=== PATIENT | male | born 1995 | race Caucasian/White ===

== ENCOUNTER 2023-01-30 23:19 | Emergency (ER) | payer OTHER ==
[~2023-01-30] VITALS: Ht 185.4 cm; Wt 97.5 kg
[2023-01-31 00:52] VITALS: BP 130/83
[2023-01-31] MEDS ORDERED: DEXAMETHASONE SOD PHOSPHATE 10 MG/ML VIAL ONE (01:30)
[2023-01-31] MEDS ORDERED: DEXAMETHASONE SOD PHOSPHATE 10 MG/ML VIAL IM ONE (01:30)
[2023-01-31 01:50] LABS: BASOPHILS # (AUTO) 0.1 K/uL (0.0-0.2); BASOPHILS % (AUTO) 0.5 % (0.0-2.0); EOSINOPHILS % (AUTO) 1.7 % (0.0-6.0); HEMATOCRIT 46 % (39-51); HEMOGLOBIN 15.1 g/dL (13.5-17.5); LYMPHOCYTES # (AUTO) 4.6 K/uL (0.8-4.8); LYMPHOCYTES % (AUTO) 41.4 % (20.0-44.0); MEAN CORPUSCULAR HGB CONC 33 g/dl (31.0-36.0); MEAN CORPUSCULAR VOLUME 88 fL (80-96); MONOCYTES # (AUTO) 0.8 K/uL (0.1-1.30); MONOCYTES % (AUTO) 7.7 % (2.0-12.0); NEUTROPHILS # (AUTO) 5.4 K/uL (1.8-8.9); NEUTROPHILS % (AUTO) 48.7 % (43.0-81.0); PLATELET COUNT (AUTO) 441 K/uL (150-450); WHITE BLOOD COUNT (AUTO) 11.1 K/uL (4.3-11.0)
[2023-01-31 02:05] LABS: CALCIUM, SERUM 9.3 mg/dL (8.5-10.1); CARBON DIOXIDE 26 mmol/L (21-32); CHLORIDE 103 mmol/L (98-107); CREATININE 0.7 mg/dL (0.6-1.3); GLUCOSE 180 mg/dL (74-106); POTASSIUM 4.3 mmol/L (3.5-5.1); SODIUM SERUM 138 mmol/L (136-145); UREA NITROGEN, BLOOD 7 mg/dL (7-18)
[2023-01-31 02:20] LABS: C-REACTIVE PROTEIN < 0.2 mg/dL (0.0-0.9)
[2023-01-31] MEDS ORDERED: DOXE10CA2 PO (02:48)
--- NOTE | 2023-01-31 02:48 | NUR ---
Patient discharged to home in stable condition. Written and verbal after care instructions given. Patient verbalizes understanding of instruction.IV removed. Catheter intact and site benign. Pressure and 4x4 applied to site. No bleeding noted.
== END 2023-01-31 03:08 | disposition home or self-care (01) ==
LOC: ER 23:23
DX: L50.8 Other urticaria (principal); R21 Rash and other nonspecific skin eruption; E11.9 Type 2 diabetes mellitus without complications
CPT/HCPCS: 99283; 96372; 85025; 80048; 85652; 36415; 86140; J1100

== ENCOUNTER 2025-07-22 10:10 | Emergency (ER) | payer OTHER ==
[~2025-07-22] VITALS: Ht 185.4 cm; Wt 96.2 kg
[~2025-07-22 10:10] MED LIST: DOXE10CA2 PO
[2025-07-22 10:44] VITALS: TEMP 98.5
[2025-07-22 12:22] LABS: PLATELET COUNT (AUTO) 498 K/uL (150-450); RED BLOOD CELL COUNT(AUTO) 5.66 MIL/uL (4.5-6.0); RED CELL DISTRIBUTION WIDTH 12.3 % (11.5-15.0); WHITE BLOOD COUNT (AUTO) 10.3 K/uL (4.3-11.0)
[2025-07-22 12:25] LABS: CALCIUM, SERUM 9.7 mg/dL (8.5-10.1); CREATININE 0.6 mg/dL (0.6-1.3); SODIUM SERUM 134.0 mmol/L (136-145); UREA NITROGEN, BLOOD 17.0 mg/dL (7-18)
[2025-07-22 12:28] LABS: LACTIC ACID 1.7 mmol/L (0.4-2.0)
[2025-07-22 12:35] LABS: ASPARTATE AMINOTRANSFERASE 31.0 U/L (15-37); TOTAL PROTEIN, SERUM 8.4 g/dL (6.4-8.2)
[2025-07-22] MEDS ORDERED: IOHEXOL-300 100 ML VIAL IV ONE (12:40)
[2025-07-22] MEDS ORDERED: IV NS 0.9% 250 ML IV ONE (12:41)
[2025-07-22] MEDS ORDERED: LIDOCAINE 1%-EPI 1:100,000 20 ML VIAL ONE (13:18)
[2025-07-22] MEDS: LIDOCAINE 1%-EPI 1:100,000 50 ML VIAL IJ ONE (14:00)
[2025-07-22] MEDS ORDERED: KETOROLAC TROMETHAMINE 15 MG/ML VIAL ONE (14:17)
[2025-07-22] MEDS: KETOROLAC TROMETHAMINE 15 MG/ML VIAL IV ONE (14:21)
[2025-07-22 14:38] LABS: APPEARANCE,URINE CLEAR (CLEAR); BLOOD, URINE NEGATIVE Ery/uL (NEGATIVE); LEUKOCYTE ESTERASE ,URINE NEGATIVE (NEGATIVE); NITRITE, URINE NEGATIVE (NEGATIVE); UGLUCOSE 1+ mg/dL (NEGATIVE)
[2025-07-22 15:13] LABS: ADD URINE CULTURE NO; SQUAMOUS EPITHELIAL CELL,UR Few /HPF (None Seen)
[2025-07-22] MEDS ORDERED: SULF1TAB48 PO (15:29)
[2025-07-22] MEDS ORDERED: CEPH-570 PO (15:29)
[2025-07-22 15:40] VITALS: BP 137/88; O2SAT 99
[2025-07-22] MEDS ORDERED: IBUP-1957 PO (16:47)
== END 2025-07-22 15:46 | disposition home or self-care (01) ==
LOC: ER 10:15
DX: L02.214 Cutaneous abscess of groin (principal); E11.9 Type 2 diabetes mellitus without complications
CPT/HCPCS: 99285; 74177; 96374; 76870; 85025; 80048; 87040 ×2; 83605; 80076; 81001; 36415; 87070; J1885; J3490 ×2; J7050; A6403; Q9967